=== PATIENT | male | born 2000 | race Two or more races ===

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

== ENCOUNTER 2019-02-19 21:23 | Emergency (ER) | payer MEDICAID, OTHER ==
--- NOTE | 2019-02-19 21:38 | EDPHY ---
H & P Stated Complaint: N/V/D starting today, unable to keep most PO's down. Time Seen by Provider: 02/19/19 21:38 - Personal History Current Tetanus/Diphtheria Vaccine: Yes Current Tetanus Diphtheria and Acellular Pertussis (TDAP): Yes - Medical/Surgical History Hx Asthma: No Hx Chronic Respiratory Disease: No Hx Diabetes: No Hx Cardiac Disease: No Hx Renal Disease: No Hx Cirrhosis: No Hx Alcoholism: No Hx HIV/AIDS: No Hx Splenectomy or Spleen Trauma: No Other PMH: denies - Social History Smoking Status: Never smoked Constitutional: Initial Vital Signs Temperature (C) 37.8 C 02/19/19 21:28 Heart Rate 116 H 02/19/19 21:28 Respiratory Rate 18 02/19/19 21:28 Blood Pressure 150/83 H 02/19/19 21:28 O2 Sat (%) 95 02/19/19 21:28 O2 Delivery Mode Room Air Allergies/Adverse Reactions: No Known Allergies Allergy (Unverified 02/19/19 21:27) Home Medications: Medication Instructions Recorded Ondansetron Odt [Zofran Odt 4 mg 4 mg PO Q4 PRN #10 tab 02/19/19 (RX)] Medical Decision Making ED Course/Re-evaluation: CHIEF COMPLAINT: Nausea, vomiting, diarrhea HISTORY OF PRESENT ILLNESS: The patient is a 18 y/o male complaining of nausea, vomiting, and diarrhea onset at 11:00am when he woke up. The patient states that his roommate was sick yesterday. He denies eating any abnormal food. No fever, headache, body aches, lightheadedness, chest pain, heart palpitations, shortness of breath, cough, abdominal pain, urinary complaints, numbness, paresthesias. REVIEW OF SYSTEMS: A comprehensive 10 system review of systems is otherwise negative aside from elements mentioned in the history of present illness and medical decision making. PHYSICAL EXAM: HR, BP, O2 Sat, RR. Temp noted General Appearance: Alert, well hydrated, appropriate, and non-toxic appearing. Head: Atraumatic without scalp tenderness or obvious injury Eyes: Pupils equal, round, reactive to light and accommodation, EOMI, no trauma , no injection. Ears: Clear bilaterally, no perforation, normal landmarks Nose: Atraumatic, no rhinorrhea, clear. Throat: There is no erythema or exudates, no lesions, normal tonsils, mucus membranes moist. Neck: Supple, 2+ carotid upstroke, nontender, no lymphadenopathy. Respiratory: No retractions, no distress, no wheezes, and no accessory muscle use. Lungs are clear to auscultation bilaterally. Cardiovascular: Regular rate and rhythm, no murmurs, rubs, or gallops. Bilateral carotid, radial, dorsalis pedis, and posterior tibial pulses intact. Good capillary refill all extremities. Gastrointestinal: Abdomen is soft, nontender, non-distended, no masses, no rebound, no guarding, no peritoneal signs. Musculoskeletal: Normal active ROM of all extremities, atraumatic. Neurological: Alert, appropriate, and interactive. The patient has normal DTRs and non-focal cranial nerves, motor, sensory, and cerebellar exam. Skin: No rashes, good turgor, no nodules on palpation. Past medical history: Denies Past surgical history: Denies Family history: Denies Social history: Mother at bedside, lives in [place], employed DIAGNOSTICS/PROCEDURES/CRITICAL CARE TIME: Not indicated. DIFFERENTIAL DIAGNOSIS: The differential diagnosis for the patient's nausea and vomiting included but was not limited to gastroenteritis, gastritis, appendicitis, and medication side effect. MEDICAL DECISION MAKING: The patient is a 18 y/o male presenting with nausea, vomiting, and diarrhea onset at 11:00am when he woke up. He has a normal physical exam. 2L IV NS and 12.5mg IV Phenergan administered. I will prescribe him Zofran to go home with. As soon as he can pass a PO trial he can be discharged home. 2210: Patient care turned over to Dr. Carr at shift change. - Data Points Medications Given: Discontinued Medications Sodium Chloride (Ns) 1,000 mls @ 0 mls/hr IV EDNOW ONE; Wide Open PRN Reason: Protocol Stop: 02/19/19 21:42 Last Admin: 02/19/19 21:55 Dose: 1,000 mls Sodium Chloride (Ns) 1,000 mls @ 0 mls/hr IV EDNOW ONE; Wide Open PRN Reason: Protocol Stop: 02/19/19 21:42 Last Admin: 02/19/19 21:54 Dose: 1,000 mls Promethazine HCl (Phenergan) 12.5 mg IVP EDNOW ONE Stop: 02/19/19 21:42 Last Admin: 02/19/19 21:54 Dose: 12.5 mg Departure - Departure Disposition: Home, Routine, Self-Care Clinical Impression: Acute gastroenteritis Condition: Good Instructions: Gastroenteritis (ED) Additional Instructions: 1. Drink plenty of fluids. 2. Take Zofran as prescribed. 3. Follow-up with your primary doctor within 72 hours. 4. Return to the Emergency Department for fever, chest pain, shortness of breath , increasing pain or other worsening of condition. Referrals: [facility],. [Clinic] - As per Instructions Prescriptions: Ondansetron Odt [Zofran Odt 4 mg (RX)] 4 mg PO Q4 PRN #10 tab PRN Reason: Nausea/Vomiting, Use 1st Report Scribed for: El Cheney Report Scribed by: Laure Clinton Date of Report: 02/19/19 Time of Report: 21:39
[2019-02-19] MEDS ORDERED: NS 1,000 ML IV ONE ×2 (21:41)
[2019-02-19] MEDS ORDERED: PROMETHAZINE HCL 25 MG/ML INJ IVP ONE (21:41)
[2019-02-19] MEDS ORDERED: NS 50 ML BAG IV ONE (21:48)
[2019-02-19] MEDS ORDERED: ONDANSETRON 4MG PREPACK#2 BTL TAKEHOME ONE (21:54)
[2019-02-19 23:03] VITALS: BP 106/57
[2019-02-19] MEDS ORDERED: ACETAMINOPHEN 500 MG TAB ONE (23:20)
[2019-02-19] MEDS ORDERED: ACETAMINOPHEN 500 MG TAB PO ONE (23:20)
== END 2019-02-19 23:40 | disposition home or self-care (01) ==
DX: K52.9 Noninfective gastroenteritis and colitis, unspecified (principal)
CPT/HCPCS: 96374; J2550